=== PATIENT | male | born 1970 | race African-American/Black ===

== ENCOUNTER 2017-07-19 06:41 | Emergency (ER) | payer MEDICARE, MEDICAID ==
[~2017-07-19] VITALS: Ht 188 cm; Wt 87.0 kg
[2017-07-19 10:07] LABS: BASOPHILS % 0.8 % (0.0-2.0); EOSINOPHILS % 1.7 % (0.0-5.0); HEMOGLOBIN. 15.2 g/dL (14.0-18.0); LYMPHOCYTES % 28.9 % (20.0-50.0); MEAN CORPUSCULAR HEMOGLOBIN 29.6 pg (28.0-32.0); MEAN CORPUSCULAR VOLUME 89.3 fL (80.0-94.0); MEAN PLATELET VOLUME 9.5 fl (7.4-10.4); MONOCYTES % 8.7 % (2.0-8.0); NEUTROPHILS % 59.9 % (40.0-76.0); PLATELET 222 x1000/uL (130-400); RED BLOOD CELL COUNT 5.15 mill/uL (4.7-6.1); RED CELL DISTRIBUTION WIDTH 13.3 % (11.6-14.6)
[2017-07-19 10:19] LABS: CARBON DIOXIDE 30 mEq/L (21-32); CHLORIDE 106 mEq/L (98-107)
[2017-07-19 10:27] LABS: CLARITY URINE CLEAR (CLEAR); COLOR URINE YELLOW (YELLOW); GLUCOSE URINE NEGATIVE (NEGATIVE); KETONES URINE NEGATIVE (NEGATIVE); LEUKOCYTE ESTERASE URINE NEGATIVE (NEGATIVE); NITRITE URINE NEGATIVE (NEGATIVE); OCCULT BLOOD URINE NEGATIVE (NEGATIVE); PH URINE 6.5 (4.5-8.0); PROTEIN URINE NEGATIVE (NEGATIVE); SPECIFIC GRAVITY URINE 1.015 (1.005-1.030); UROBILINOGEN URINE 0.2 E.U./dL (0.2-1.0)
[2017-07-19 11:40] VITALS: BP 124/88
== END 2017-07-19 11:52 | disposition home or self-care (01) ==
LOC: ER 07:27
DX: K59.00 Constipation, unspecified (principal); L84 Corns and callosities; R11.0 Nausea
CPT/HCPCS: 36415; 80053; 81003; 83690; 85025; 99284

== ENCOUNTER 2022-12-05 12:33 | Emergency (ER) | payer MEDICARE, MEDICAID ==
[~2022-12-05] VITALS: Ht 177.8 cm; Wt 101.0 kg
[2022-12-05 12:44] VITALS: BP 147/100
[2022-12-05] MEDS ORDERED: KETOROLAC 30MG/ML VIAL IM ONE (14:15)
== END 2022-12-05 16:37 | disposition left against medical advice (07) ==
LOC: ER 12:33
DX: N50.819 Testicular pain, unspecified (principal)
CPT/HCPCS: 99281

== ENCOUNTER 2023-11-16 15:45 | Emergency (ER) | payer MEDICARE, MEDICAID ==
[~2023-11-16] VITALS: Ht 193 cm; Wt 120.0 kg
[2023-11-16 15:54] VITALS: O2SAT 97
[2023-11-16 17:53] LABS: EOSINOPHILS % 0.7 % (0.0-5.0); HEMATOCRIT. 34.3 % (42.0-52.0); HEMOGLOBIN. 11.7 g/dL (14.0-18.0); LYMPHOCYTES % 24.1 % (20.0-50.0); MEAN CORPUSCULAR HEMOGLOBIN 27.7 pg (28.0-32.0); MEAN CORPUSCULAR HGB CONC 34.1 g/dL (31.0-37.0); MEAN CORPUSCULAR VOLUME 81.3 fL (80.0-94.0); MEAN PLATELET VOLUME 8.6 fl (7.4-10.4); MONOCYTES % 4.5 % (2.0-8.0); NEUTROPHILS % 68.7 % (40.0-76.0); PLATELET 237 x1000/uL (130-400); RED BLOOD CELL COUNT 4.22 mill/uL (4.7-6.1); RED CELL DISTRIBUTION WIDTH 15.5 % (11.6-14.6); WHITE BLOOD COUNT 6.4 x1000/uL (4.5-11.0)
[2023-11-16 17:55] LABS: PARTIAL THROMBOPLASTIN TIME 25.1 sec (23.4-31.0)
[2023-11-16 17:57] LABS: ALANINE AMINOTRANSFERASE 78 IU/L (10-49); ALBUMIN 4.1 g/dL (3.2-4.8); ASPARTATE AMINOTRANSFERASE 63 IU/L (<34); BILIRUBIN TOTAL 0.5 mg/dL (0.1-1.0); CARBON DIOXIDE 26 mEq/L (21-32); CHLORIDE 105 mEq/L (98-107); GLUCOSE 89 mg/dL (70-105); POTASSIUM 3.6 mEq/L (3.5-5.1); PROTEIN TOTAL 6.3 g/dL (6.0-8.3); SODIUM 139 mEq/L (136-145); TROPONIN I HIGH SENSITIVITY 5 ng/L (3.0-53); UREA NITROGEN BLOOD 8 mg/dL (9-23)
[2023-11-16] MEDS: LORAZEPAM 0.5MG TABLET PO ONE (19:21)
[2023-11-16 20:17] LABS: TROPONIN I HIGH SENSITIVITY 7 ng/L (3.0-53)
[2023-11-16] MEDS ORDERED: MELA1TAB51 MT (20:29)
[2023-11-16 20:40] VITALS: BP 138/93; PULSE 93; RESP 15; TEMP 99
== END 2023-11-16 20:45 | disposition home or self-care (01) ==
LOC: ER 15:45
DX: R07.89 Other chest pain (principal); G47.00 Insomnia, unspecified; F17.200 Nicotine dependence, unspecified, uncomplicated; E78.00 Pure hypercholesterolemia, unspecified
CPT/HCPCS: 36415; 71045; 80053; 83880; 84484; 85025; 93005; 99285

== ENCOUNTER 2025-01-01 12:34 | Emergency (ER) | payer MEDICARE, MEDICAID ==
[~2025-01-01] VITALS: Ht 177.8 cm; Wt 90.0 kg
[~2025-01-01 12:34] MED LIST: MELA1TAB51 MT
[2025-01-01 12:36] VITALS: O2SAT 98
[2025-01-01] MEDS ORDERED: DICYCLOMINE 10 MG/5 ML ORAL SYR PO STA (13:03)
[2025-01-01 13:17] LABS: BASOPHILS % 1.2 % (0.0-2.0); DIFFERENTIAL COMMENT 0; EOSINOPHILS % 0.8 % (0.0-5.0); HEMATOCRIT. 41.3 % (42.0-52.0); HEMOGLOBIN. 13.9 g/dL (14.0-18.0); MEAN CORPUSCULAR HEMOGLOBIN 27.3 pg (28.0-32.0); MEAN CORPUSCULAR HGB CONC 33.7 g/dL (31.0-37.0); MEAN CORPUSCULAR VOLUME 80.8 fL (80.0-94.0); MEAN PLATELET VOLUME 9.9 fl (7.4-10.4); MONOCYTES % 10.7 % (2.0-8.0); NEUTROPHILS % 62.3 % (40.0-76.0); PLATELET 238 x1000/uL (130-400); RED BLOOD CELL COUNT 5.11 mill/uL (4.7-6.1); RED CELL DISTRIBUTION WIDTH 14.4 % (11.6-14.6); WHITE BLOOD COUNT 5.9 x1000/uL (4.5-11.0)
[2025-01-01 13:23] LABS: CHLORIDE 105 mEq/L (98-107); POTASSIUM 3.4 mEq/L (3.5-5.1); PROTHROMBIN TIME 10.7 sec (9.6-11.0); SODIUM 141 mEq/L (136-145)
[2025-01-01 13:24] LABS: CALCIUM 10.3 mg/dL (8.7-10.4); CARBON DIOXIDE 24 mEq/L (21-32)
[2025-01-01 13:29] LABS: GLUCOSE 83 mg/dL (70-105)
[2025-01-01 13:30] LABS: ETHANOL BLOOD 39 mg/dL (<10); TROPONIN I HIGH SENSITIVITY 12 ng/L (3.0-53); UREA NITROGEN BLOOD 7 mg/dL (9-23)
[2025-01-01 13:31] LABS: ALANINE AMINOTRANSFERASE 43 IU/L (10-49); ALBUMIN 4.4 g/dL (3.2-4.8); ASPARTATE AMINOTRANSFERASE 95 IU/L (<34)
[2025-01-01 13:32] LABS: BILIRUBIN DIRECT 0.2 mg/dL (<=3.0); BILIRUBIN TOTAL 0.7 mg/dL (0.1-1.0); PROTEIN TOTAL 7.1 g/dL (6.0-8.3)
[2025-01-01] MEDS: MAGNESIUM/ALUMINUM HYDROXIDE/SIMETHICONE 30ML UDC PO STA (13:42)
[2025-01-01] MEDS: FAMOTIDINE 20MG TABLET PO ONE (13:42)
[2025-01-01] MEDS: LORAZEPAM 2MG/ML INJ IV ONE (13:57)
[2025-01-01] MEDS: DICYCLOMINE HCL 10MG CAPSULE PO NR (14:10)
[2025-01-01 14:42] LABS: CLARITY URINE CLEAR (CLEAR); COLOR URINE YELLOW (YELLOW); GLUCOSE URINE NEGATIVE (NEGATIVE); KETONES URINE NEGATIVE (NEGATIVE); LEUKOCYTE ESTERASE URINE NEGATIVE (NEGATIVE); NITRITE URINE NEGATIVE (NEGATIVE); OCCULT BLOOD URINE NEGATIVE (NEGATIVE); PH URINE 7.5 (4.5-8.0); PROTEIN URINE NEGATIVE (NEGATIVE); SPECIFIC GRAVITY URINE 1.008 (1.005-1.030)
[2025-01-01 16:19] LABS: TROPONIN I HIGH SENSITIVITY 11 ng/L (3.0-53)
[2025-01-01 16:41] VITALS: BP 111/75; PULSE 86; RESP 20; TEMP 36.7; O2SAT 97
== END 2025-01-01 17:09 | disposition home or self-care (01) ==
LOC: ER 12:34
DX: R07.89 Other chest pain (principal); F19.10 Other psychoactive substance abuse, uncomplicated; E78.00 Pure hypercholesterolemia, unspecified; Z59.00 Homelessness unspecified; Z98.890 Other specified postprocedural states
CPT/HCPCS: 80076; 80048; 81003; 80320; 83690; 85025; 85610; 84484; 36415; 71045; 93005; 96374; 99285; J2060; G0480

== ENCOUNTER 2025-01-09 17:04 | Emergency (ER) | payer OTHER, MEDICAID ==
[~2025-01-09] VITALS: Ht 188 cm; Wt 104.0 kg
[2025-01-09 17:07] VITALS: BP 123/81; PULSE 73; TEMP 36.7; O2SAT 98
[2025-01-09 17:53] LABS: BASOPHILS % 3.2 % (0.0-2.0); DIFFERENTIAL COMMENT 0; EOSINOPHILS % 0.7 % (0.0-5.0); HEMATOCRIT. 38.1 % (42.0-52.0); HEMOGLOBIN. 12.4 g/dL (14.0-18.0); LYMPHOCYTES % 29.7 % (20.0-50.0); MEAN CORPUSCULAR HEMOGLOBIN 26.7 pg (28.0-32.0); MEAN CORPUSCULAR HGB CONC 32.4 g/dL (31.0-37.0); MEAN CORPUSCULAR VOLUME 82.4 fL (80.0-94.0); MEAN PLATELET VOLUME 9.3 fl (7.4-10.4); MONOCYTES % 9.9 % (2.0-8.0); NEUTROPHILS % 56.5 % (40.0-76.0); PLATELET 220 x1000/uL (130-400); RED BLOOD CELL COUNT 4.63 mill/uL (4.7-6.1); RED CELL DISTRIBUTION WIDTH 14.2 % (11.6-14.6); WHITE BLOOD COUNT 3.7 x1000/uL (4.5-11.0)
[2025-01-09 18:00] LABS: CARBON DIOXIDE 26 mEq/L (21-32); CHLORIDE 111 mEq/L (98-107); SODIUM 143 mEq/L (136-145)
[2025-01-09 18:01] LABS: CALCIUM 9.4 mg/dL (8.7-10.4)
[2025-01-09 18:05] LABS: CREATININE 1.1 mg/dL (0.6-1.3); GLUCOSE 88 mg/dL (70-105)
[2025-01-09 18:06] LABS: TROPONIN I HIGH SENSITIVITY 4 ng/L (3.0-53); UREA NITROGEN BLOOD 10 mg/dL (9-23)
[2025-01-09 18:07] LABS: ALANINE AMINOTRANSFERASE 19 IU/L (10-49); ALBUMIN 3.8 g/dL (3.2-4.8); ASPARTATE AMINOTRANSFERASE 23 IU/L (<34)
[2025-01-09 18:08] LABS: BILIRUBIN DIRECT 0.1 mg/dL (<=3.0); BILIRUBIN TOTAL 0.5 mg/dL (0.1-1.0); PROTEIN TOTAL 6.6 g/dL (6.0-8.3)
[2025-01-09 19:04] VITALS: RESP 16
[2025-01-09] MEDS: IBUPROFEN 600MG TABLET PO ONE (19:04)
== END 2025-01-09 21:16 | disposition left against medical advice (07) ==
LOC: ER 17:04
DX: R10.9 Unspecified abdominal pain (principal); F15.10 Other stimulant abuse, uncomplicated; E78.00 Pure hypercholesterolemia, unspecified; Z53.21 Procedure and treatment not carried out due to patient leaving prior to being seen by health care provider; Z98.890 Other specified postprocedural states
CPT/HCPCS: 36415; 71045; 74176; 80048; 80076; 84484; 85025; 93005; 99285

== ENCOUNTER 2025-01-10 04:08 | Emergency (ER) | payer OTHER, MEDICAID ==
[~2025-01-10] VITALS: Ht 177.8 cm; Wt 129.0 kg
[2025-01-10 04:13] VITALS: O2SAT 100
[2025-01-10 05:14] LABS: BASOPHILS % 2.4 % (0.0-2.0); DIFFERENTIAL COMMENT 0; EOSINOPHILS % 1.1 % (0.0-5.0); HEMATOCRIT. 37.6 % (42.0-52.0); HEMOGLOBIN. 12.5 g/dL (14.0-18.0); LYMPHOCYTES % 35.4 % (20.0-50.0); MEAN CORPUSCULAR HGB CONC 33.1 g/dL (31.0-37.0); MEAN CORPUSCULAR VOLUME 81.7 fL (80.0-94.0); MEAN PLATELET VOLUME 9.9 fl (7.4-10.4); MONOCYTES % 9.5 % (2.0-8.0); NEUTROPHILS % 51.6 % (40.0-76.0); PLATELET 221 x1000/uL (130-400); RED BLOOD CELL COUNT 4.61 mill/uL (4.7-6.1); RED CELL DISTRIBUTION WIDTH 14.6 % (11.6-14.6); WHITE BLOOD COUNT 3.7 x1000/uL (4.5-11.0)
[2025-01-10 05:20] LABS: CHLORIDE 109 mEq/L (98-107); POTASSIUM 3.6 mEq/L (3.5-5.1); SODIUM 142 mEq/L (136-145)
[2025-01-10 05:21] LABS: CALCIUM 9.5 mg/dL (8.7-10.4); CARBON DIOXIDE 29 mEq/L (21-32)
[2025-01-10 05:26] LABS: GLUCOSE 99 mg/dL (70-105); UREA NITROGEN BLOOD 10 mg/dL (9-23)
[2025-01-10 05:27] LABS: TROPONIN I HIGH SENSITIVITY 4 ng/L (3.0-53)
[2025-01-10 10:38] LABS: CLARITY URINE CLEAR (CLEAR); COLOR URINE YELLOW (YELLOW); GLUCOSE URINE NEGATIVE (NEGATIVE); KETONES URINE NEGATIVE (NEGATIVE); LEUKOCYTE ESTERASE URINE NEGATIVE (NEGATIVE); NITRITE URINE NEGATIVE (NEGATIVE); OCCULT BLOOD URINE NEGATIVE (NEGATIVE); PH URINE 6.5 (4.5-8.0); PROTEIN URINE NEGATIVE (NEGATIVE); SPECIFIC GRAVITY URINE 1.014 (1.005-1.030)
[2025-01-10 11:17] VITALS: BP 136/86; PULSE 80; RESP 12; TEMP 37; O2SAT 100
== END 2025-01-10 11:52 | disposition home or self-care (01) ==
LOC: ER 04:08
DX: R07.89 Other chest pain (principal); N43.3 Hydrocele, unspecified; F15.10 Other stimulant abuse, uncomplicated
CPT/HCPCS: 36415; 71045; 76870; 80048; 81003; 84484; 85025; 93005; 93976; 99285

== ENCOUNTER 2025-01-11 20:49 | Emergency (ER) | payer OTHER, MEDICAID ==
[~2025-01-11] VITALS: Ht 193 cm; Wt 83.0 kg
[2025-01-11 21:06] VITALS: O2SAT 100
[2025-01-11 21:35] VITALS: BP 104/59; PULSE 100; RESP 20; TEMP 36.9; O2SAT 100
[2025-01-11 22:00] LABS: BASOPHILS % 1.7 % (0.0-2.0); EOSINOPHILS % 0.6 % (0.0-5.0); HEMATOCRIT. 40.1 % (42.0-52.0); HEMOGLOBIN. 13.2 g/dL (14.0-18.0); LYMPHOCYTES % 25.8 % (20.0-50.0); MEAN CORPUSCULAR HEMOGLOBIN 26.9 pg (28.0-32.0); MEAN CORPUSCULAR HGB CONC 32.9 g/dL (31.0-37.0); MEAN CORPUSCULAR VOLUME 81.7 fL (80.0-94.0); MEAN PLATELET VOLUME 10.3 fl (7.4-10.4); NEUTROPHILS % 63.9 % (40.0-76.0); PLATELET 205 x1000/uL (130-400); RED BLOOD CELL COUNT 4.91 mill/uL (4.7-6.1); RED CELL DISTRIBUTION WIDTH 14.4 % (11.6-14.6); WHITE BLOOD COUNT 6.7 x1000/uL (4.5-11.0)
[2025-01-11 22:09] LABS: CHLORIDE 110 mEq/L (98-107); POTASSIUM 3.7 mEq/L (3.5-5.1); SODIUM 144 mEq/L (136-145)
[2025-01-11 22:10] LABS: CARBON DIOXIDE 23 mEq/L (21-32)
[2025-01-11 22:11] LABS: CALCIUM 9.2 mg/dL (8.7-10.4)
[2025-01-11 22:15] LABS: CREATININE 1.1 mg/dL (0.6-1.3); GLUCOSE 84 mg/dL (70-105); UREA NITROGEN BLOOD 11 mg/dL (9-23)
[2025-01-11 22:16] LABS: TROPONIN I HIGH SENSITIVITY 9 ng/L (3.0-53)
[2025-01-12] MEDS ORDERED: PANT20TA17 MT (08:33)
== END 2025-01-12 03:24 | disposition left against medical advice (07) ==
LOC: ER 20:59
DX: R07.89 Other chest pain (principal); Z53.21 Procedure and treatment not carried out due to patient leaving prior to being seen by health care provider
CPT/HCPCS: 36415; 71045; 80048; 84484; 85025; 93005

== ENCOUNTER 2025-01-12 05:13 | Emergency (ER) | payer OTHER, MEDICAID ==
[2025-01-12 05:25] VITALS: PULSE 95; RESP 20; O2SAT 100
[2025-01-12 06:04] LABS: CHLORIDE 108 mEq/L (98-107); EOSINOPHILS % 0.8 % (0.0-5.0); HEMOGLOBIN. 12.7 g/dL (14.0-18.0); MEAN CORPUSCULAR HEMOGLOBIN 26.7 pg (28.0-32.0); MEAN CORPUSCULAR HGB CONC 32.7 g/dL (31.0-37.0); MEAN CORPUSCULAR VOLUME 81.6 fL (80.0-94.0); MEAN PLATELET VOLUME 9.9 fl (7.4-10.4); NEUTROPHILS % 63.2 % (40.0-76.0); PLATELET 238 x1000/uL (130-400); POTASSIUM 3.7 mEq/L (3.5-5.1); RED BLOOD CELL COUNT 4.77 mill/uL (4.7-6.1); RED CELL DISTRIBUTION WIDTH 14.3 % (11.6-14.6); SODIUM 143 mEq/L (136-145); WHITE BLOOD COUNT 6.5 x1000/uL (4.5-11.0)
[2025-01-12 06:05] LABS: CALCIUM 9.7 mg/dL (8.7-10.4); CARBON DIOXIDE 30 mEq/L (21-32)
[2025-01-12 06:10] LABS: CREATININE 1.2 mg/dL (0.6-1.3); GLUCOSE 109 mg/dL (70-105); UREA NITROGEN BLOOD 13 mg/dL (9-23)
[2025-01-12 06:11] LABS: TROPONIN I HIGH SENSITIVITY 14 ng/L (3.0-53)
[2025-01-12] MEDS ORDERED: PANT20TA17 MT (08:33)
[2025-01-12] MEDS ORDERED: FAMOTIDINE 20MG TABLET PO ONE (08:45)
[2025-01-12] MEDS: FAMOTIDINE 20MG TABLET PO NR (11:46)
[2025-01-19] MEDS ORDERED: ASPI-1160 PO (16:25)
[2025-01-19] MEDS ORDERED: LIP40 PO (16:25)
== END 2025-01-12 11:50 | disposition home or self-care (01) ==
LOC: ER 05:13
DX: R10.9 Unspecified abdominal pain (principal); R07.89 Other chest pain; E78.00 Pure hypercholesterolemia, unspecified; F17.210 Nicotine dependence, cigarettes, uncomplicated; F10.90 Alcohol use, unspecified, uncomplicated; F15.90 Other stimulant use, unspecified, uncomplicated; Z79.899 Other long term (current) drug therapy; Z87.19 Personal history of other diseases of the digestive system; Y90.9 Presence of alcohol in blood, level not specified
CPT/HCPCS: 36415; 71045; 80048; 84484; 85025; 93005; 99285

== ENCOUNTER 2025-01-16 22:17 | Inpatient (IN) | payer OTHER, MEDICAID, MEDICARE ==
[~2025-01-16] VITALS: Ht 182.9 cm; Wt 99.0 kg
[~2025-01-16 22:17] MED LIST changes: +PANT20TA17 MT
[2025-01-16 22:21] VITALS: O2SAT 98
[2025-01-16 23:22] LABS: BASOPHILS % 3.3 % (0.0-2.0); EOSINOPHILS % 0.6 % (0.0-5.0); HEMATOCRIT. 39.9 % (42.0-52.0); HEMOGLOBIN. 13.4 g/dL (14.0-18.0); LYMPHOCYTES % 24.1 % (20.0-50.0); MEAN CORPUSCULAR HEMOGLOBIN 27.4 pg (28.0-32.0); MEAN CORPUSCULAR HGB CONC 33.6 g/dL (31.0-37.0); MEAN CORPUSCULAR VOLUME 81.5 fL (80.0-94.0); MEAN PLATELET VOLUME 10.3 fl (7.4-10.4); MONOCYTES % 10.6 % (2.0-8.0); NEUTROPHILS % 61.4 % (40.0-76.0); PLATELET 222 x1000/uL (130-400); RED CELL DISTRIBUTION WIDTH 14.4 % (11.6-14.6); WHITE BLOOD COUNT 6.5 x1000/uL (4.5-11.0)
[2025-01-16 23:30] LABS: CHLORIDE 106 mEq/L (98-107); POTASSIUM 3.3 mEq/L (3.5-5.1); SODIUM 142 mEq/L (136-145)
[2025-01-16 23:31] LABS: CARBON DIOXIDE 26 mEq/L (21-32)
[2025-01-16 23:36] LABS: GLUCOSE 94 mg/dL (70-105); UREA NITROGEN BLOOD 9 mg/dL (9-23)
[2025-01-16 23:37] LABS: TROPONIN I HIGH SENSITIVITY 19 ng/L (3.0-53)
[2025-01-16] MEDS: MORPHINE SULFATE 4 MG/ML INJ (FOR IV/IM USE) IV NR (23:58)
[2025-01-16] MEDS: ONDANSETRON HCL 4MG/2ML INJ IV NR (23:58)
[2025-01-16] MEDS: FAMOTIDINE 20MG/2ML VIAL IV NR (23:59)
[2025-01-17 00:49] LABS: ETHANOL BLOOD < 10 mg/dL (<10)
[2025-01-17 00:50] LABS: ALANINE AMINOTRANSFERASE 34 IU/L (10-49); ALBUMIN 3.8 g/dL (3.2-4.8); ASPARTATE AMINOTRANSFERASE 71 IU/L (<34); BILIRUBIN DIRECT 0.2 mg/dL (<=3.0); BILIRUBIN TOTAL 0.7 mg/dL (0.1-1.0); PROTEIN TOTAL 6.6 g/dL (6.0-8.3)
[2025-01-17] MEDS ORDERED: IPRATROPIUM/ALBUTEROL 0.5-3(2.5)MG/3ML NEB HHN PRN (04:00)
[2025-01-17] MEDS ORDERED: GUAIFENESIN 200MG/10ML SUGAR FREE UDC PO PRN (04:00)
[2025-01-17] MEDS ORDERED: ONDANSETRON HCL 4MG/2ML INJ IV PRN (04:00)
[2025-01-17] MEDS ORDERED: ACETAMINOPHEN 325MG TABLET PO PRN ×2 (04:00)
[2025-01-17] MEDS ORDERED: DOCUSATE SODIUM 100MG CAPSULE PO PRN (04:00)
[2025-01-17] MEDS ORDERED: MAGNESIUM/ALUMINUM HYDROXIDE/SIMETHICONE 30ML UDC PO PRN (04:00)
[2025-01-17] MEDS: POTASSIUM CHLORIDE 20MEQ TABLET SR PO NR (05:11)
[2025-01-17 08:00] VITALS: BP 113/77; PULSE 64; RESP 18; TEMP 36.5; O2SAT 98
[2025-01-17] MEDS: FAMOTIDINE 20MG/2ML VIAL IV SCH (09:18)
[2025-01-19] MEDS ORDERED: LIP40 PO (16:25)
[2025-01-19] MEDS ORDERED: ASPI-1160 PO (16:25)
== END 2025-01-17 12:50 | disposition left against medical advice (07) | DRG 446 ==
LOC: ER 22:17 → 5WST 01-17 03:26 → EDBEDREQSVC 01-17 05:34
PROVIDERS: ADMIT Hospitalist; ATTEND Hospitalist
DX: K80.70 Calculus of gallbladder and bile duct without cholecystitis without obstruction (principal); E87.6 Hypokalemia; E78.00 Pure hypercholesterolemia, unspecified; J06.9 Acute upper respiratory infection, unspecified; R07.89 Other chest pain; D72.821 Monocytosis (symptomatic); Z53.29 Procedure and treatment not carried out because of patient's decision for other reasons; F15.90 Other stimulant use, unspecified, uncomplicated; F17.210 Nicotine dependence, cigarettes, uncomplicated
CPT/HCPCS: 36415; 71045; 74176; 80048; 80076; 80320; 83605; 83735; 84484; 85025; 86850; 86900; 93005; 99285; J2270; J2405; J3490; G0480

== ENCOUNTER 2025-01-17 19:34 | Emergency (ER) | payer OTHER, MEDICAID ==
[~2025-01-17] VITALS: Ht 193 cm; Wt 84.0 kg
[2025-01-17 19:43] VITALS: TEMP 36.9; O2SAT 100
[2025-01-17] MEDS ORDERED: ACETAMINOPHEN 325MG TABLET PO STA (20:13)
[2025-01-17] MEDS: SODIUM CHLORIDE 0.9% 1,000 ML IV ONE (22:03)
[2025-01-17] MEDS: ACETAMINOPHEN 325MG TABLET PO NR (22:05)
[2025-01-17 23:47] LABS: BASOPHILS % 2.5 % (0.0-2.0); HEMATOCRIT. 35.4 % (42.0-52.0); LYMPHOCYTES % 33.5 % (20.0-50.0); MEAN CORPUSCULAR HEMOGLOBIN 27.5 pg (28.0-32.0); MEAN CORPUSCULAR HGB CONC 33.8 g/dL (31.0-37.0); MEAN CORPUSCULAR VOLUME 81.4 fL (80.0-94.0); MEAN PLATELET VOLUME 9.9 fl (7.4-10.4); MONOCYTES % 7.4 % (2.0-8.0); NEUTROPHILS % 55.6 % (40.0-76.0); PLATELET 199 x1000/uL (130-400); RED BLOOD CELL COUNT 4.34 mill/uL (4.7-6.1); RED CELL DISTRIBUTION WIDTH 14.1 % (11.6-14.6); WHITE BLOOD COUNT 4.6 x1000/uL (4.5-11.0)
[2025-01-17 23:53] LABS: CHLORIDE 110 mEq/L (98-107); POTASSIUM 3.8 mEq/L (3.5-5.1); SODIUM 143 mEq/L (136-145)
[2025-01-17 23:55] LABS: CARBON DIOXIDE 25 mEq/L (21-32)
[2025-01-17 23:57] LABS: D-DIMER 0.33 mg/L FEU (<0.50); PROTHROMBIN TIME 10.6 sec (9.6-11.0)
[2025-01-18] LABS: CREATININE 1.1 mg/dL (0.6-1.3); GLUCOSE 92 mg/dL (70-105); UREA NITROGEN BLOOD 12 mg/dL (9-23)
[2025-01-18 00:01] LABS: ALANINE AMINOTRANSFERASE 33 IU/L (10-49)
[2025-01-18 00:02] LABS: ALBUMIN 3.6 g/dL (3.2-4.8); ASPARTATE AMINOTRANSFERASE 69 IU/L (<34); BILIRUBIN DIRECT 0.1 mg/dL (<=3.0); BILIRUBIN TOTAL 0.5 mg/dL (0.1-1.0); PROTEIN TOTAL 6.1 g/dL (6.0-8.3); TROPONIN I HIGH SENSITIVITY 10 ng/L (3.0-53)
[2025-01-18 01:00] LABS: TROPONIN I HIGH SENSITIVITY 10 ng/L (3.0-53)
[2025-01-18 02:07] VITALS: BP 138/77; PULSE 64; RESP 14; O2SAT 100
[2025-01-18 14:26] LABS: CLARITY URINE CLEAR (CLEAR); COLOR URINE YELLOW (YELLOW); GLUCOSE URINE NEGATIVE (NEGATIVE); KETONES URINE NEGATIVE (NEGATIVE); LEUKOCYTE ESTERASE URINE NEGATIVE (NEGATIVE); NITRITE URINE NEGATIVE (NEGATIVE); OCCULT BLOOD URINE NEGATIVE (NEGATIVE); PROTEIN URINE NEGATIVE (NEGATIVE); SPECIFIC GRAVITY URINE 1.016 (1.005-1.030)
[2025-01-19] MEDS ORDERED: LIP40 PO (16:25)
[2025-01-19] MEDS ORDERED: ASPI-1160 PO (16:25)
== END 2025-01-18 02:24 | disposition home or self-care (01) ==
LOC: ER 19:34
DX: R07.89 Other chest pain (principal); R10.9 Unspecified abdominal pain; F15.10 Other stimulant abuse, uncomplicated; E78.00 Pure hypercholesterolemia, unspecified; Z98.890 Other specified postprocedural states
CPT/HCPCS: 99291; 74176; 96360; 80076; 80048; 83690; 85025; 85379; 85610; 84484 ×2; 36415 ×2; 71045; 93005; 81003; J7030

== ENCOUNTER 2025-01-26 17:20 | Emergency (ER) | payer OTHER, MEDICAID ==
[~2025-01-26] VITALS: Ht 185.4 cm; Wt 90.0 kg
[~2025-01-26 17:20] MED LIST changes: +ASPI-1160 PO; +LIP40 PO
[2025-01-26 17:21] VITALS: O2SAT 100
[2025-01-26 17:31] VITALS: BP 127/79; PULSE 93; RESP 14; TEMP 36.9; O2SAT 100
== END 2025-01-26 18:03 | disposition left against medical advice (07) ==
LOC: ER 17:20
DX: I10 Essential (primary) hypertension (principal); Z53.21 Procedure and treatment not carried out due to patient leaving prior to being seen by health care provider

== ENCOUNTER 2025-02-09 00:17 | Emergency (ER) | payer MEDICAID ==
[~2025-02-09 00:17] MED LIST changes: -ASPI-1160 PO; +ASPI-1406 PO; -PANT20TA17 MT; +PANT40TA51 PO
[2025-02-09 00:28] VITALS: PULSE 104; O2SAT 100
== END 2025-02-09 01:09 | disposition left against medical advice (07) ==
LOC: ER 00:17
DX: I10 Essential (primary) hypertension (principal); Z53.21 Procedure and treatment not carried out due to patient leaving prior to being seen by health care provider

== ENCOUNTER 2025-02-11 11:00 | Emergency (ER) | payer MEDICAID ==
[~2025-02-11] VITALS: Ht 190.5 cm; Wt 94.0 kg
[2025-02-11 11:11] VITALS: O2SAT 98
[2025-02-11 11:29] LABS: BASOPHILS % 1.1 % (0.0-2.0); DIFFERENTIAL COMMENT 0; EOSINOPHILS % 0.5 % (0.0-5.0); HEMATOCRIT. 38.7 % (42.0-52.0); HEMOGLOBIN. 12.8 g/dL (14.0-18.0); LYMPHOCYTES % 18.4 % (20.0-50.0); MEAN CORPUSCULAR HEMOGLOBIN 26.7 pg (28.0-32.0); MEAN CORPUSCULAR HGB CONC 33.1 g/dL (31.0-37.0); MEAN CORPUSCULAR VOLUME 80.4 fL (80.0-94.0); MEAN PLATELET VOLUME 9.7 fl (7.4-10.4); MONOCYTES % 9.4 % (2.0-8.0); NEUTROPHILS % 70.6 % (40.0-76.0); PLATELET 227 x1000/uL (130-400); RED BLOOD CELL COUNT 4.81 mill/uL (4.7-6.1); RED CELL DISTRIBUTION WIDTH 14.2 % (11.6-14.6)
[2025-02-11 11:47] LABS: CHLORIDE 107 mEq/L (98-107); POTASSIUM 3.7 mEq/L (3.5-5.1); SODIUM 142 mEq/L (136-145)
[2025-02-11 11:48] LABS: CALCIUM 9.3 mg/dL (8.7-10.4); CARBON DIOXIDE 25 mEq/L (21-32)
[2025-02-11 11:53] LABS: CREATININE 1.1 mg/dL (0.6-1.3); GLUCOSE 83 mg/dL (70-105); UREA NITROGEN BLOOD 14 mg/dL (9-23)
[2025-02-11 12:27] LABS: CLARITY URINE CLEAR (CLEAR); COLOR URINE YELLOW (YELLOW); GLUCOSE URINE NEGATIVE (NEGATIVE); KETONES URINE NEGATIVE (NEGATIVE); LEUKOCYTE ESTERASE URINE NEGATIVE (NEGATIVE); NITRITE URINE NEGATIVE (NEGATIVE); OCCULT BLOOD URINE NEGATIVE (NEGATIVE); PH URINE 6.5 (4.5-8.0); PROTEIN URINE NEGATIVE (NEGATIVE); SPECIFIC GRAVITY URINE 1.006 (1.005-1.030); UROBILINOGEN URINE 0.2 E.U./dL (0.2-1.0)
[2025-02-11 15:29] LABS: ETHANOL BLOOD < 10 mg/dL (<10)
[2025-02-11 15:31] LABS: ACETAMINOPHEN < 2 ug/mL (10-30)
[2025-02-11 15:38] LABS: *AMPHETAMINES SCREEN URINE NEGATIVE (NEGATIVE); *BARBITURATES SCREEN URINE NEGATIVE (NEGATIVE); *BENZODIAZEPINES SCREEN URINE NEGATIVE (NEGATIVE); *COCAINE SCREEN URINE NEGATIVE (NEGATIVE); CANNABINOID URINE SCREEN NEGATIVE (NEGATIVE); ECSTASY MDMA SCREEN URINE NEGATIVE (NEGATIVE); METHADONE URINE SCREEN NEGATIVE (NEGATIVE); OPIATES URINE SCREEN NEGATIVE (NEGATIVE); PHENCYCLIDINE URINE SCREEN NEGATIVE (NEGATIVE)
[2025-02-11] MEDS: ACETAMINOPHEN 500MG TABLET PO ONE (19:23)
[2025-02-12] MEDS: IBUPROFEN 400MG TABLET PO ONE (06:40)
[2025-02-12 11:09] VITALS: BP 104/67; PULSE 80; RESP 18; TEMP 36.8; O2SAT 98
== END 2025-02-12 11:20 | disposition home or self-care (01) ==
LOC: ER 11:00
DX: R45.851 Suicidal ideations (principal); R44.0 Auditory hallucinations; E78.00 Pure hypercholesterolemia, unspecified; Z59.00 Homelessness unspecified; Z79.82 Long term (current) use of aspirin; Z79.899 Other long term (current) drug therapy
CPT/HCPCS: 36415; 80048; 80305; 80307; 80320; 80329; 81003; 85025; 87426; 99291; G0480